=== PATIENT | female | born 1955 | race Two or more races ===

== ENCOUNTER 2021-12-14 05:55 | Day surgery (SDC) | payer OTHER ==
[~2021-12-14 05:55] MED LIST: PRAVASTATIN SOD20 MG; PRILOSEC OTC20 MG PO; SINGULAIR10 MG; VERAPAMIL ER180 MG
[2021-12-14] MEDS ORDERED: IBU600 MG PO (08:35)
== END 2021-12-14 11:45 | disposition home or self-care (01) ==
LOC: CIR.AMB 05:55
PROVIDERS: ATTEND Obstetrics & Gynecology Gynecology
DX: N84.0 Polyp of corpus uteri (principal); D25.0 Submucous leiomyoma of uterus; Z20.822 Contact with and (suspected) exposure to COVID-19

== ENCOUNTER 2022-01-26 07:11 | Outpatient (CLI) | payer OTHER ==
[~2022-01-26 07:11] MED LIST changes: +IBU600 MG PO
== END 2022-01-26 07:19 | disposition home or self-care (01) ==
LOC: TOM 07:11
PROVIDERS: ATTEND Internal Medicine
DX: R10.9 Unspecified abdominal pain (principal); K57.92 Diverticulitis of intestine, part unspecified, without perforation or abscess without bleeding

== ENCOUNTER 2023-08-30 11:57 | Emergency (ER) | payer OTHER ==
[~2023-08-30] VITALS: Ht 177.8 cm; Wt 62.6 kg
[2023-08-30] MEDS ORDERED: CRESTOR20 MG PO (12:05)
[2023-08-30 14:14] LABS: HEMATOCRIT 46.9 % (36.0-45.00); HEMOGLOBIN 15.9 g/dL (12.0-15.00); MEAN CELL VOLUME 87.8 fL (80.00-100.00); MEAN CORPUSCULAR HEMOGLOBIN 29.9 pg (27.00-32.0); PLATELET COUNT 269 K/uL (150-450); RED BLOOD COUNT 5.34 M/uL (4.00-6.00); RED CELL DISTRIBUTION WIDTH 14.6 % (11.5-14.5)
[2023-08-30 14:59] LABS: BILIRUBIN TOTAL 0.3 mg/dL (0.3-1.2); CALCIUM 9.6 mg/dL (8.5-10.1); CREATININE SERUM 0.55 mg/dL (0.55-1.02); GFR 110.25; GLOBULINA 3.3 G/DL (2.4-3.5); POTASSIUM 3.57 mEq/L (3.5-5.1); TOTAL PROTEIN 7.3 gm/dL (6.4-8.2)
[2023-08-30 15:11] LABS: PH,URINE 5.5 (5.0-8.0); URINE APPEARANCE Clear; URINE BILIRRUBIN Negative (NEGATIVE); URINE BLOOD Negative; URINE COLOR Yellow; URINE GLUCOSE Negative (NEGATIVE); URINE LEUKOCYTE Negative; URINE NITRATE Negative; URINE PROTEIN Negative (NEGATIVE); URINE UROBILINOGEN 0.2 E.U./dl
[2023-08-30 15:15] LABS: URINE BACTERIA 12.5 uL (0.0-1933); URINE EPITHELIAL CELLS 2.4 uL (0.0-38.8); URINE RBC 2.5 uL (0.0-20.8)
== END 2023-08-30 16:37 | disposition home or self-care (01) ==
LOC: ER 11:57
PROVIDERS: Emergency Medicine
DX: R10.9 Unspecified abdominal pain (principal); I10 Essential (primary) hypertension; Z88.2 Allergy status to sulfonamides; J45.909 Unspecified asthma, uncomplicated; E78.00 Pure hypercholesterolemia, unspecified; K57.90 Diverticulosis of intestine, part unspecified, without perforation or abscess without bleeding; K29.70 Gastritis, unspecified, without bleeding

== ENCOUNTER 2025-07-19 08:47 | Emergency (ER) | payer OTHER ==
[~2025-07-19] VITALS: Ht 152.4 cm; Wt 59.0 kg
[~2025-07-19 08:47] MED LIST changes: +CRESTOR20 MG PO
[2025-07-19] MEDS ORDERED: FAMOtidine 10 MG/ML (4ML VIAL) IV ONE (09:15)
[2025-07-19] MEDS ORDERED: 0.9 % SODIUM CHLORIDE 1,000 ML IV ONE (09:15)
[2025-07-19 09:48] LABS: BASO % 0.7 % (0.1-1.2); EOS # 0.11 (0.04-0.54); EOS % 1.5 % (0.7-7.0); LYMPH # 2.07 (1.18-3.74); LYMPH % 28.6 % (19.3-53.1); MEAN PLATELET VOLUME 10.40 fl (9.4-12.4); MONO # 0.65 (0.24-0.82); MONO % 9.0 % (4.7-12.5); NEUT # 4.34 (1.56-6.13); NEUT % 59.9 % (34.0-71.1); RED CELL DISTRIBUTION WIDTH 13.2 % (11.6-14.4)
[2025-07-19 09:56] LABS: URINE APPEARANCE Clear; URINE BILIRRUBIN Negative (NEGATIVE); URINE BLOOD Negative; URINE COLOR Yellow; URINE GLUCOSE Negative (NEGATIVE); URINE KETONE Negative (NEGATIVE); URINE LEUKOCYTE Negative; URINE NITRATE Negative; URINE PROTEIN Negative (NEGATIVE); URINE UROBILINOGEN 0.2 E.U./dl
[2025-07-19 09:57] LABS: URINE WBC 2.4 uL (0.0-23.2)
[2025-07-19 10:02] LABS: URINE BACTERIA 1.1 uL (0.0-1933); URINE CAST 0.00 uL (0.0-1.40); URINE EPITHELIAL CELLS 1.3 uL (0.0-38.8); URINE RBC 1.4 uL (0.0-20.8)
[2025-07-19 10:15] LABS: ALT/SGPT 34.0 U/L (12-78); AST/SGOT 23.0 U/L (15-37); BILIRUBIN TOTAL 0.4 mg/dL (0.3-1.2); BILIRUBIN,CONJUGATED 0.13 mg/dL (0.0-0.2); BUN CREA RATIO 9.0 (7.0-25.0); CREATININE SERUM 0.54 mg/dL (0.55-1.02); GFR 111.94; GLOBULINA 3.5 G/DL (2.4-3.5); GLUCOSE FASTING 104.0 mg/dL (65-100); OSMOLALITY SERUM 284.0 MOSM/KG (275-295)
[2025-07-19 10:36] LABS: INR 1.02
[2025-07-19] MEDS ORDERED: METRONIDAZOLE500 MG PO (12:38)
[2025-07-19] MEDS ORDERED: PEPCID AC20 MG PO (12:38)
[2025-07-19] MEDS ORDERED: LEVSIN/SL0.125 MG SL (12:38)
[2025-07-19] MEDS ORDERED: PROBIOTIC1 EAC2 PO (12:38)
== END 2025-07-19 12:58 | disposition home or self-care (01) ==
LOC: ER 08:47
PROVIDERS: General Practice
DX: R10.11 Right upper quadrant pain (principal); R11.2 Nausea with vomiting, unspecified; R10.9 Unspecified abdominal pain; I10 Essential (primary) hypertension; Z88.1 Allergy status to other antibiotic agents
CPT/HCPCS: 36415; 71250; 74177; Q9965